=== PATIENT | male | born 1970 | race Caucasian/White ===

== ENCOUNTER 2020-12-16 10:59 | Inpatient (IN) | payer OTHER ==
[~2020-12-16] VITALS: Ht 182.9 cm; Wt 93.4 kg
[2020-12-16 15:57] LABS: BASOPHILS PERCENT AUTO 0 % (0-2); EOSINOPHILS PERCENT AUTO 0 % (0-6); Hematocrit 36.3 % (37.0-53.0); Hemoglobin 11.8 g/dL (13.5-17.5); Mean Corpuscular HGB 19.8 pg (26.0-34.0); Mean Corpuscular HGB Conc 32.5 g/dL (31.5-36.5); Mean Corpuscular Volume 61 fL (80-100); Platelet Count 198 K/mm3 (150-400); Red Blood Cell Count 5.96 M/mm3 (4.30-5.90); White Blood Cell Count 2.76 K/mm3 (4.00-11.30)
[2020-12-16 15:59] LABS: BASOPHILS ABSOLUTE AUTO 0.01 K/mm3 (0.00-0.23); IMMATURE GRAN ABSOLUTE AUTO 0.01 K/mm3 (0.00-0.10); LYMPHOCYTES ABSOLUTE AUTO 0.79 K/mm3 (0.84-5.20); LYMPHOCYTES PERCENT AUTO 30 % (21-46); MONOCYTES PERCENT AUTO 11 % (4-13); NEUTROPHILS ABSOLUTE AUTO 1.57 K/mm3 (1.96-9.15)
[2020-12-16 16:00] LABS: IMMATURE GRAN PERCENT AUTO 0 % (0-1); NEUTROPHILS PERCENT AUTO 59 % (41-73)
[2020-12-16 16:16] LABS: Alanine Aminotransfer (ALT/SGP 42 U/L (12-78); Albumin, Blood 3.6 g/dL (3.4-5.0); Albumin/Globulin Ratio 0.9 (0.8-1.8); Alk Phos 65 U/L (50-136); Anion Gap 8 mmol/L (6-16); Aspartate Aminotrans (AST/SGOT 40 U/L (12-37); Blood Urea Nitrogen 12 mg/dL (8-24); Bun/Creatinine Ratio 13.4 (12.0-20.0); CO2, Blood 27 mmol/L (21-32); Calcium, Blood 8.4 mg/dL (8.5-10.1); Chloride, Blood 93 mmol/L (98-108); Glomerular Filtration Rate >60 (60-); Glucose, Blood 104 mg/dL (70-99); Potassium, Blood 3.8 mmol/L (3.5-5.5); Sodium, Blood 128 mmol/L (136-145); Total Protein, Blood 7.6 g/dL (6.4-8.2)
[2020-12-16] MEDS ORDERED: LIOT5 PO (16:47)
[2020-12-16] MEDS ORDERED: Synthroid200 MCG PO (16:56)
[2020-12-16] MEDS ORDERED: ACYCLOVIR400 MG PO (16:58)
[2020-12-16] MEDS ORDERED: VITAMIN D31000 UNI1 PO (16:59)
[2020-12-16] MEDS ORDERED: Hair, Skin & N1 EACH PO (16:59)
--- NOTE | 2020-12-16 18:16 | NUR ---
PT ADMIT TO PCU AT 1715. ON 2 L O2 SATING MID 90'S. SOB WHEN MOVING AROUND IN BED. DRY COUGH. TELE SHOWING SINUS. DENIES CHEST PAIN/PRESSURE. STATES HIS "KIDNEYS" ARE IN PAIN. DOCTORS AWARE. AT THIS TIME NO NEW ORDERS. BOWEL TONES PRESENT. PPP. STATES HE IS FEELING OKAY BUT TIRED. VITAL SIGNS STABLE AND WNL. ORIENTED TO ROOM/UNIT/CALL LIGHT. CONSENTS SIGNED AND IN CHART. WILL CONTINUE TO MONITOR.
[2020-12-17 06:25] LABS: BASOPHILS PERCENT AUTO 0 % (0-2); EOSINOPHILS PERCENT AUTO 0 % (0-6); Hematocrit 34.9 % (37.0-53.0); Hemoglobin 11.3 g/dL (13.5-17.5); Mean Corpuscular HGB Conc 32.4 g/dL (31.5-36.5); Mean Corpuscular Volume 62 fL (80-100); Platelet Count 161 K/mm3 (150-400); RDW Coefficient Variation 16.4 % (11.7-14.2); RDW Standard Deviation 34.4 fL (35.1-46.3); Red Blood Cell Count 5.66 M/mm3 (4.30-5.90)
[2020-12-17 06:31] LABS: IMMATURE GRAN ABSOLUTE AUTO 0.01 K/mm3 (0.00-0.10); IMMATURE GRAN PERCENT AUTO 1 % (0-1); LYMPHOCYTES ABSOLUTE AUTO 0.58 K/mm3 (0.84-5.20); LYMPHOCYTES PERCENT AUTO 39 % (21-46); MONOCYTES ABSOLUTE AUTO 0.26 K/mm3 (0.16-1.47); MONOCYTES PERCENT AUTO 17 % (4-13); NEUTROPHILS ABSOLUTE AUTO 0.65 K/mm3 (1.96-9.15); NEUTROPHILS PERCENT AUTO 43 % (41-73)
--- NOTE | 2020-12-17 07:17 | NUR ---
SHIFT SUMMARY ASSUMED CARE OF PT AT 1900. PT IS A/OX4. HEART SOUNDS REGULAR, LUNG SOUNDS HAVE CRACKLES AT THE BAEAS. PT HAS DRY COUGH. PT WAS ON 2L DURING THE NIGHT AND LONT DESATURATED WHEN HE ATTEMPTED TO GET UP IN BED ONCE INTO THE 85%. PT WAS CONTINENT WITH THE URINAL. PT C/O RASH ON HIS BODY, WHICH LOOKDS AND FEELS TO HIM LIKE A SUNBURN. PT C/O SEVERE HEADACHE, NOTIFEID HOSPTIALIST WHO ORDERED NORCO, THIS PROVIDED RELEIF FROM 12/31 TP 07/31 PAIN. CALL LIGHT IN REACH, BED IN LOWEST POSITON.
[2020-12-17 07:20] LABS: Alanine Aminotransfer (ALT/SGP 42 U/L (12-78); Albumin, Blood 3.3 g/dL (3.4-5.0); Albumin/Globulin Ratio 0.8 (0.8-1.8); Alk Phos 63 U/L (50-136); Anion Gap 7 mmol/L (6-16); Aspartate Aminotrans (AST/SGOT 42 U/L (12-37); Bilirubin, Total 0.6 mg/dL (0.1-1.0); Blood Urea Nitrogen 13 mg/dL (8-24); CO2, Blood 25 mmol/L (21-32); Calcium, Blood 8.4 mg/dL (8.5-10.1); Chloride, Blood 99 mmol/L (98-108); Creatinine, Blood 0.81 mg/dL (0.60-1.20); Globulin, Blood 3.9 g/dL (2.2-4.0); Glomerular Filtration Rate >60 (60-); Glucose, Blood 138 mg/dL (70-99); Potassium, Blood 4.3 mmol/L (3.5-5.5); Sodium, Blood 131 mmol/L (136-145); Total Protein, Blood 7.2 g/dL (6.4-8.2)
--- NOTE | 2020-12-17 16:00 | NUR ---
NO ACUTE EVENTS, VSS. PATIENT ALERT AND ORIENTED, ABLE TO CALL APPROPRIATELY. ON 2 L O2 VIA NASAL CANNULA, TITRATED DOWN TO 1 L AND 02 SATURATION REMAINS >90%. PT PROVIDED EDUCATION BY THIS RN REGARDING IMPORTANCE OF COUGHING AND DEEP BREATHING, ENCOURAGED TO PRONE MUCH POSSIBLE WHEN IN BED. PT VERBALIZED UNDERSTANDING. ABLE TO AMBULATE INDEPENDENTLY IN ROOM.
--- NOTE | 2020-12-17 19:54 | NUR ---
REPORT OBTAINED FROM SCOTT BILLINGSLEY, OUTSIDE PT'S ROOM OBSERVING STRICT ISOLATION PROTOCOL, NEAR END OF SHIFT; PT REQUESTED/RECEIVED ANALGESIA, COUGH SYRUP, AND COUGH SUPPRESSANT PEARLES PER MAR; PT ASSISTED TO SHOWER, ASSISTED TO SIT UP IN CHAIR FOR 1.5 HR ON 1LNC, AND ASSISTED TO A [id number] POSITION WITH PILLOW SUPPORT X3 AND BED IN REVERSE [place] POSITION WITH HOB RAISED ABOVE LEVEL TO 15 DEGREES, PT REPORTS FEELING MUCH BETTER, PT ONLY ATE 15% DINNER, PT DENIES ADDITIONAL CONCERNS AT THIS TIME
--- NOTE | 2020-12-17 21:30 | NUR ---
HEADACHE / CALL TO MD IRIZARRY GRIMACING IN BED, C/O 11/30 "EXCRUTIATING HEADACHE KEEPING ME FROM SLEEPING." PT REPORTS FIRST PROVIDED PRN NORCO HELPFUL FOR HEADACHE, BUT REPORTS "THE LAST ONE DID NOTHING." PT PROVIDED W/ PRN TYLENOL W/ NO IMPROVEMENT WELL. CALL TO MD TOMLINSON TO REPORT FINDINGS W/ NEW MD ORDERS FOR PRN ULTRAM & TRAZADONE, SEE ORDERS.
--- NOTE | 2020-12-18 04:23 | NUR ---
UPDATE PT REPORTS HEADACHE "COMPLETELY WENT AWAY" AFTER NEW PRN MEDICATION TX. PT HOWEVER, LATER C/O NEWLY "COUGHING UP BLOOD SINCE MIDNIGHT. I HAVEN'T BEEN ABLE TO SLEEP, I FALL ASLEEP FOR 15 MINUTES OR SO, THEN I'M AWAKE & COUGHING AGAIN." PT MEDICATED W/ PRN COUGH MEDICINE & MORE PAIN MEDICATION D/T RETURN OF HEADACHE AGAIN. 2L NC INCREASED TO 3L D/T PT SPO2 86-89%. SPO2 NOW > 92%. PT ALSO W/ NEW TEMP OF 100.3, MEDICATED W/ PRN TYLENOL. WILL CONTINUE TO MONITOR.
[2020-12-18 04:57] LABS: Hematocrit 32.9 % (37.0-53.0); Hemoglobin 10.7 g/dL (13.5-17.5); Mean Corpuscular HGB 19.9 pg (26.0-34.0); Mean Corpuscular HGB Conc 32.5 g/dL (31.5-36.5); Mean Corpuscular Volume 61 fL (80-100); Platelet Count 201 K/mm3 (150-400); RDW Coefficient Variation 16.1 % (11.7-14.2); RDW Standard Deviation 34.2 fL (35.1-46.3); Red Blood Cell Count 5.38 M/mm3 (4.30-5.90); White Blood Cell Count 4.85 K/mm3 (4.00-11.30)
[2020-12-18 05:03] LABS: Mean Platelet Volume 9.9 fL (9.1-12.4)
[2020-12-18 05:23] LABS: Anion Gap 7 mmol/L (6-16); Blood Urea Nitrogen 13 mg/dL (8-24); Bun/Creatinine Ratio 17.6 (12.0-20.0); CO2, Blood 26 mmol/L (21-32); Calcium, Blood 8.2 mg/dL (8.5-10.1); Chloride, Blood 96 mmol/L (98-108); Creatinine, Blood 0.74 mg/dL (0.60-1.20); Ferritin, Serum 1888 ng/mL (26-388); Glomerular Filtration Rate >60 (60-); Glucose, Blood 123 mg/dL (70-99); Iron Serum 30 ug/dL (65-175); Percent Saturation 16.2 % (20.0-50.0); Potassium, Blood 3.7 mmol/L (3.5-5.5); Sodium, Blood 129 mmol/L (136-145); Thyroid Stimulating Hormone 0.394 uIU/mL (0.360-4.800); Total Iron Binding Capacity 185 ug/dL (250-450)
--- NOTE | 2020-12-18 06:49 | NUR ---
SHIFT SUMMARY PT MEDICAL NO TELE STATUS. PT A&O X4. SPO2 > 92% ON 1L NC UPON CARE ASSUMPTION, INCREASED TO 3L NC THIS SHIFT. PT TEMP ELEVATED, MEDICATED W/ PRN TYLENOL X1. PT C/O HEADACHE, MEDICATED W/ PRN MEDICATIONS, SEE PREVIOUS NOTES. 0600 SCHEDULED SYNTHROID HELD AT THIS TIME PER CLINICAL JUDGEMENT D/T PT FINALLY SLEEPING AFTER FULL NIGHT OF STRUGGLING TO SLEEP. MED TO BE GIVEN WHEN PT AWAKE.
--- NOTE | 2020-12-18 07:20 | NUR ---
PT SLEEPING WILL MONITOR AND ALLOW REST
--- NOTE | 2020-12-18 09:30 | NUR ---
PT AWAKE MEDS GIVEN ALONG WITH MEAL TRAY DISCUSSED WITH PT THAT I UPDATED FAMILY ON HIS COND ALSO TALKED WITH DR TAY PT STATED HE HAS BEEN HAVING MORE SOB AND UNABLE TO WALK INTO THE BATHROOM ONLY ABLE TO SLEEP A FEW HR THIS AM HIS H/A IMPROVED DURING THIS TIME STATED HIS RASH "DUFFY" AND HIS BODY ACHES ALL OVER INC RR WITH FINE CRACKLES ANT TO UPPER LOBES DISCUSSED WITH PT CONSERVING ENERGY AND PURSED LIP BREATHING WITH MOVEMENT TO RECOVER
--- NOTE | 2020-12-18 12:30 | NUR ---
pt watching tv stated earlier he did get up to the chair it took 5 min to recover in the bed after sitting up stated the benadryl is helping his rash
--- NOTE | 2020-12-18 15:30 | NUR ---
meds given prn for h/a and muscle pain pt stated any time he moves he still gets coughing spells yesterday reported pain to his kidneys stated that was better since he inc his fluid intake
--- NOTE | 2020-12-18 16:08 | NUR ---
dr vuong by update given
--- NOTE | 2020-12-18 17:45 | NUR ---
pt feeling better then this am pain 10/31 still mild h/a less coughing would like to have a shower before bed stated he has been trying to stay awake with the benadryl so he can try and sleep tonight stated it has made him drowsy
--- NOTE | 2020-12-19 05:14 | NUR ---
SHIFT SUMMARY S/P COVID19, A/O X4, VSS, PT LUNG SOUNDS CONTINUE TO IMPROVE c NO CRACKLES DETECTED DURING ASSESSMENT, PT CONTINUES TO BE AFEBRILE, SOME SOB REMAINS AND PT IS STILL USING 3L O2 BUT IS FEELING "A LITTLE BETTER" PER HIS REPORT. PT SATS DROPPED INTO THE UPPER 70'S BUT PT WAS FOUND TO BE WITHOUT HIS NC, NC REPLACED TO HIS NOSE AND HIS SATS RETURNED TO NORMAL. PT REPORTS GETTING A LITTLE MORE SLEEP TONIGHT. NO OTHER ACUTE EVENTS THIS SHIFT.CALL LIGHT IN REACH, WILL CTM AND REPORT TO DAY RN.
--- NOTE | 2020-12-19 09:37 | NUR ---
02 SATS PT'S SATS DROPPED TO MID 70S. ENTERED ROOM TO FIND PT HAD AMBULATED TO RESTROOM AND BACK W/O 02. PT RETURNED TO BED AND PLACED O2 ON. NOW LOW 90S. ADVISED PT TO USE URINAL AT BEDSIDE SO DID NOT NEED TO REMOVE 02. HE STATED COULD NOT FIND IT, PLACED IN IN SIGHT. HAD SMALL AMOUNT BLOODY SPUTUM. NOW RESTING IN BED. CALL LIGHT IN REACH.
--- NOTE | 2020-12-19 10:37 | NUR ---
PROVIDED IS AND INSTRUCTED ON USE. PT DEMONSTRATED USE. DISCUSSED LYING PRONE OR ON SIDE. PT DENIES ANY NEEDS AT THIS TIME. 02 SATS 93% O N 3L NC.
--- NOTE | 2020-12-19 13:58 | NUR ---
PT TO CT
--- NOTE | 2020-12-19 14:26 | NUR ---
PT BACK FROM CT.
--- NOTE | 2020-12-19 17:55 | NUR ---
call from family member PT'S SON, ARY, CALLED FOR UPDATE. WHEN ASKED PT IF HAD PERMISSION TO GIVE UPDATE, HE STATED HE WOULD CALL HIS SON HIMSELF.
--- NOTE | 2020-12-19 17:56 | NUR ---
SUMMARY PT CONTINUES TO REQUIRE 3L NC TO MAINTAIN SATS IN 90S. W/O 02, SATS DROP TO HIGH 70S, LOW 80S. CT PE STUDY COMPLETED THIS SHIFT. MEDICATED PT TWICE DURING SHIFT FOR PAIN AND COUGHING. PT APPETITE POOR BUT DRINKING FLUIDS. VOIDING. CALL LIGHT IN REACH.
[2020-12-20 04:17] LABS: Hematocrit 33.2 % (37.0-53.0); Hemoglobin 10.6 g/dL (13.5-17.5); Mean Corpuscular HGB 19.7 pg (26.0-34.0); Mean Corpuscular HGB Conc 31.9 g/dL (31.5-36.5); Mean Corpuscular Volume 62 fL (80-100); Platelet Count 317 K/mm3 (150-400); RDW Coefficient Variation 16.4 % (11.7-14.2); RDW Standard Deviation 34.5 fL (35.1-46.3); Red Blood Cell Count 5.37 M/mm3 (4.30-5.90); White Blood Cell Count 5.42 K/mm3 (4.00-11.30)
[2020-12-20 04:40] LABS: Anion Gap 5 mmol/L (6-16); Blood Urea Nitrogen 13 mg/dL (8-24); Bun/Creatinine Ratio 18.9 (12.0-20.0); CO2, Blood 30 mmol/L (21-32); Calcium, Blood 8.5 mg/dL (8.5-10.1); Chloride, Blood 99 mmol/L (98-108); Creatinine, Blood 0.69 mg/dL (0.60-1.20); Glomerular Filtration Rate >60 (60-); Glucose, Blood 110 mg/dL (70-99); Sodium, Blood 134 mmol/L (136-145)
--- NOTE | 2020-12-20 05:34 | NUR ---
SHIFT SUMMARY ASSUMED CARE OF PT AT 1900. PT IS A/OX4. HEART SOUNDS REGULAR, LUNG SOUNDS ARE TIGHT WITH CRACKLES AT THE BASES. PT IS ON 3L NC. PT C/O COUG. PT STATES THAT HE HAS BEEN COUGHING BLOODY SPUTUM, PT STATED THAT HOSPITALIST WAS AWARE. PT WAS MEDICATED PER EMAR FOR COUGH AND PAIN. PT ASKED ABOUT WHEN HE WOULD GO HOME TODAY. PT IS ALSO COMPLAINED ABOUT NOT BEING ABLE TO SLEEP, PT WAS MEDICATED WITH TRAZADONE WITH NO EFFECTS. PT C/O NOT BEING ABLE TO SLEEP AND WAS VERY SHORT THIS AM, UPSET THAT HE WAS NOT ABLE TO SLEEPT THE PAST FOUR DAYS HE HAS BEEN HERE. CALL LIGHT IN REACH, BED IN LOWEST POSITION.
--- NOTE | 2020-12-20 09:41 | NUR ---
PT ALERT AND ORIENTED X4. ON 3 L NASAL CANNULA SATING MID 90'S. UP TO SHOWER, PT REDUSING TO WEAR O2 TO BATHROOM, DESATS TO MID 80'S WITHOUT O2. WHEN TALKING AND UP IN ROOM ON 3 L NASAL CANNULA DESATS TO HIGH 80'S. COMPLAINS OF LUNG PAIN WHEN TRYING TO TAKE A DEEP BREATH, WHICH THEN CAUSES PATIENT TO COUGH. COUGH IS PRODUCTIVE, SMALL AMOUNT OF PINK SPUTUM. NO TELE VITAL SIGNS STABLE. DENIES CHEST PAIN/PRESSURE. BOWEL TONES PRESENT. PPP. DENIES BODY ACHES/JOINT PAIN. ABLE TO EAT A SMALL AMOUNT OF BREAKFAST. TAKING PILLS WHOLE WITH WATER. UP TO SHOWER THIS AM. PRONING IN BED AT THIS TIME. DENIES NEEDS. SPOKE WITH PATIENT'S MOM ON PHONE AND PROVIDED UPDATE WITH PT PERMISSION. PATIENT ANXIOUS TO GO HOME, COMPLAINS OF NOT GETTING GOOD SLEEP. CALL LIGHT IN REACH. WILL CONTINUE TO MONITOR.
--- NOTE | 2020-12-20 13:12 | NUR ---
HOME O2 EVAL DONE, 3L NEEDED WHEN PATIENT IS UP EXERCISING. PLAN FOR DISCHARGE TOMORROW. IV REMDESIVIR INFUSING. DENIES NEEDS AT THIS TIME. WILL CONTINUE TO MONITOR
--- NOTE | 2020-12-20 19:36 | NUR ---
NO ACUTE CHANGES. PT COMPLAINS OF "DEEP LUNG PAIN" WHEN BREATHING IN. ENCOURAGED PRONING AND UP IN RECLINER. PT USING INCENTIVE SPIROMETER THROUGHOUT THE DAY. VITAL SIGNS REMAIN STABLE. ON 3 L O2 SATING MID 90'S. HOME O2 EVAL DONE, PLAN TO DISCHARGE TOMORROW. REPORTED OFF TO ONCOMING NURSE.
--- NOTE | 2020-12-21 05:07 | NUR ---
SHIFT SUMMARY ASSUMED CARE OF PT AT 1900. PT IS A/OX4. HEART SOUNDS REGULAR, LUNG SOUNDS ARE TIGHT AND HAVE CRACKLES AT THE BASES. PT REMAINED ON 3L NC. PT STILL COMPLAINED OF HACKING DRY COUGH. PT WAS ABLE TO SLEEP T/O THE NIGHT TONIGHT. CALL LIGHT IN REACH, BED IN LOWEST POSITION.
--- NOTE | 2020-12-21 09:25 | NUR ---
PT ALERT AND ORIENTED X4. NEURO WNL. ON 3L NASAL CANNULA SATING MID 90'S. COMPLAINS OF LUNG PAIN WHEN TAKING A DEEP BREATH. PRONING AND INCENTIVE SPIROMETER ENCOURAGED. LUNGS SOUNDING CLEAR AT TOP AND CRACKLES/COARSE IN BASES. NO TELE AT THIS TIME. VITAL SIGNS STABLE. BOWEL TONES PRESENT. DENIES BODY/JOINT PAIN. DENIES NUMBNESS/TINGLING. PLAN TO DISCHARGE THIS AM. PATIENT HAS HOME OXYGEN SET UP. CALL LIGHT IN REACH. DENIES NEEDS AT THIS TIME. WILL CONTINUE TO MONITOR.
[2020-12-21] MEDS ORDERED: Acetaminophen650 M1 PO (09:52)
[2020-12-21] MEDS ORDERED: Tessalon200 MG PO (09:54)
[2020-12-21] MEDS ORDERED: DECADRON6 M1 PO (09:55)
[2020-12-21] MEDS ORDERED: GUAI600T33 PO (09:56)
[2020-12-21] MEDS ORDERED: ONDA4ODT MM (09:57)
[2020-12-21] MEDS ORDERED: ROXICODONE5 MG PO (09:58)
[2020-12-21] MEDS ORDERED: TRAZ100 PO (09:59)
--- NOTE | 2020-12-21 10:42 | NUR ---
DISCHARGE: NO ACUTE CHANGES, VITAL SIGNS STABLE. DISCHARGE INSTRUCTIONS REVIEWED, QUESTIONS ANSWERED. PRESCRIPTIONS CALLED IN AND PATIENT PROVIDED WITH OXYCODONE WRITTEN PRESCRIPTION, COPY IN CHART. HOME O2. IV REMOVED PER PROTOCOL. DISCHARGE WNL. LEFT UNIT VIA WHEELCHAIR WITH ALL PERSONAL BELONGINGS.
== END 2020-12-21 10:30 | disposition home or self-care (01) | DRG 177 ==
LOC: ER 10:59 → PCU 16:28 → MEDS 16:28 → PCU 17:02
PROVIDERS: Internal Medicine; Physician Assistant; ADMIT Internal Medicine
PROC: 8E0ZXY6 Isolation (ICD-10-PCS; principal; 2020-12-16)
PROC: 3E0333Z Introduction of Anti-inflammatory into Peripheral Vein, Percutaneous Approach (ICD-10-PCS; 2020-12-16)
PROC: XW033E5 Introduction of Remdesivir Anti-infective into Peripheral Vein, Percutaneous Approach, New Technology Group 5 (ICD-10-PCS; 2020-12-16)
DX: U07.1 COVID-19 (principal); J12.82 Pneumonia due to coronavirus disease 2019; J96.01 Acute respiratory failure with hypoxia; R04.2 Hemoptysis; E03.9 Hypothyroidism, unspecified; E55.9 Vitamin D deficiency, unspecified; E86.0 Dehydration; D70.9 Neutropenia, unspecified; D63.8 Anemia in other chronic diseases classified elsewhere; Z79.899 Other long term (current) drug therapy; R21 Rash and other nonspecific skin eruption
CPT/HCPCS: 36415; 71045; 71260; 80048; 80053; 82728; 83540; 83550; 83880; 84145; 84443; 85025; 85027; 94761; 94762; 96374; 96375; 99285-25; A9270; J1100; J1650; J1885; J2405; J7030; J7050; Q9967

== ENCOUNTER 2025-05-02 09:38 | Day surgery (SDC) | payer OTHER ==
[~2025-05-02] VITALS: Ht 182.9 cm; Wt 99.5 kg
[~2025-05-02 09:38] MED LIST: ACYCLOVIR400 MG PO; Acetaminophen650 M1 PO; Bupivacaine 0.5% W/EPI 1:200000 SDV 30 ML Vial ONE; DECADRON6 M1 PO; GUAI600T33 PO; Hair, Skin & N1 EACH PO; LIOT5 PO; ONDA4ODT MM; ROXICODONE5 MG PO; Synthroid200 MCG PO; TRAZ100 PO; Tessalon200 MG PO; VITAMIN D31000 UNI1 PO
[2025-05-02] MEDS ORDERED: CeFAZolin Sodium 2,000 MG VIAL ONE (09:42)
[2025-05-02] MEDS ORDERED: FentaNYL Citrate 50 MCG/ML 2 ML Injection ONE ×2 (10:33→11:46)
--- NOTE | 2025-05-02 10:33 | NUR ---
05/02/25 1033 MARTINEZ CASTILLO PT READY FOR OR. BOTH PROVIDERS HAVE BEEN IN, CALL LIGHT WITHIN REACH. AWAITING TX TO OR.
[2025-05-02] MEDS ORDERED: Dexamethasone Sod Phos 10 MG/ML 1ML VIAL ONE (10:43)
[2025-05-02] MEDS ORDERED: Ondansetron HCl 2 MG / ML 2ML Vial ONE (10:43)
[2025-05-02] MEDS ORDERED: HYDROmorphone HCl/Pf 1MG SYR ONE (10:54)
[2025-05-02] MEDS ORDERED: Ketorolac Tromethamine 30mg Vial ONE (10:55)
--- NOTE | 2025-05-02 11:55 | NUR ---
05/02/25 1155 [place] FENTANYL 25MCG IV GIVEN AT 1155 FOR 11/30 RIGHT KNEE PAIN
[2025-05-02 11:58] VITALS: BP 165/102
== END 2025-05-02 13:15 | disposition home or self-care (01) ==
LOC: ORSCSDS 09:38
PROVIDERS: Orthopaedic Surgery
PROC: 0SBC4ZZ Excision of Right Knee Joint, Percutaneous Endoscopic Approach (ICD-10-PCS; principal; 2025-05-02 11:30)
DX: M23.321 Other meniscus derangements, posterior horn of medial meniscus, right knee (principal); J45.909 Unspecified asthma, uncomplicated; M79.7 Fibromyalgia; K21.9 Gastro-esophageal reflux disease without esophagitis; I10 Essential (primary) hypertension; E05.90 Thyrotoxicosis, unspecified without thyrotoxic crisis or storm; Z79.899 Other long term (current) drug therapy
CPT/HCPCS: A9270; J0166; J0690; J1100; J1171; J1885; J2405; J2704; J3010; J7120